=== PATIENT | female | born 1960 | race Caucasian/White ===

== ENCOUNTER 2016-04-03 11:13 | Emergency (ER) | payer BC ==
[2016-04-03 11:49] LABS: COLOR YELLOW; LEUKOCYTE ESTERASE,URINE NEGATIVE (NEGATIVE); NITRITE,URINE NEGATIVE (NEGATIVE)
--- NOTE | 2016-04-03 14:37 | EDPHY ---
H & P Time Seen by Provider: 04/03/16 14:25 HPI/ROS: CHIEF COMPLAINT: Right flank pain. HISTORY OF PRESENT ILLNESS: The patient is a 55-year-old female who presents with intermittent right flank pain for 6 days. The pain is intermittent in nature. It is described as 9/10 sharp, stabbing pain. It initially stayed in the right flank but now radiates her RUQ in the last 2 days. She reports having nausea and chills after the pain episodes. The pain wakes her up at night. She admits associated mild constipation, low-grade fever, and fatigue. She denies dysuria, urinary difficulty, hematuria, vomiting, diarrhea, recent sickness. She has a family history of gallbladder issues. REVIEW OF SYSTEMS: A complete 10-point review of systems was performed and is negative except for those items mentioned in the HPI. Past Medical/Surgical History: Hysterectomy. Social History: Nonsmoker. Smoking Status: Never smoked Physical Exam: General Appearance: Alert, no distress Eyes: Pupils equal and round, no conjunctival pallor or injection ENT, Mouth: Mucous membranes moist Neck: Normal inspection Respiratory: Lungs are clear to auscultation Cardiovascular: Regular rate and rhythm Gastrointestinal: RUQ tenderness. Abdomen is soft Neurological: A&O, nonfocal, normal gait Skin: Warm and dry, no rash Extremities: Nontender, no pedal edema Psychiatric: Mood and affect normal Constitutional: Initial Vital Signs Temperature (C) 36.4 C 04/03/16 11:24 Heart Rate 67 04/03/16 11:24 Respiratory Rate 20 04/03/16 11:24 Blood Pressure 116/70 04/03/16 11:24 O2 Sat (%) 95 04/03/16 11:24 O2 Delivery Mode Room Air Allergies/Adverse Reactions: No Known Allergies Allergy (Unverified 04/03/16 11:22) Home Medications: Medication Instructions Recorded 5-Cry 04/03/16 Dhea 04/03/16 Estrogen,Con/M-Progest Acet 04/03/16 Progesterone 04/03/16 Tetosterone 04/03/16 Medical Decision Making - Diagnostics Imaging: Study: Ultrasound of the: RUQ Indication: Pain. Results: No acute process. The study was read by the radiologist. I viewed the images myself on the PACS system. Study: CT of the abdomen/pelvis w/o IV contrast. Indication: Flank pain/RUQ pain. Results: 1. No nephro or ureterolithiasis.. 2. Normal appendix. 3. Prominent stool in the right side of the colon raises the possibility of constipation. 4. Cystic sacral lesion, not completely typical for arachnoid or Tarlov cyst. This could possibly represent a teratoma. Recommend MRI without and with contrast for further evaluation. The study was read by the radiologist, Dr. Beaulieu. I viewed the images myself on the PACS system. ED Course/Re-evaluation: Given RUQ/flank pain, I suspect gallstones vs renal colic. Abd sono ultrasound ordered. An IV was established and labs ordered. 1L IV saline administered for hydration along with 4mg IV Morphine for pain and 4mg IV Zofran for nausea. 1615: Abdominal ultrasound is negative. I discussed this with the patient at this time and reassessed her. An abdominal CT was ordered to further evaluate. I also ordered a D-dimer to screen her for a pulmonary embolism, given right flank pain with a normal ultrasound. 1643: Discussed CT results with Dr. Beaulieu, radiology. I discussed the results with the patient at this time and answered all of her questions. She wishes to proceed with MRI of the sacrum to further evaluate the cystic area. I do not think that the sacral lesion is causing her symptoms today. D-dimer is elevated at 1.6; CT pulmonary angiogram ordered to rule out pulmonary embolism. Study results discussed with the patient. She will follow up with Neurosurgery regarding the neural cyst. Abdominal pain precautions given. Abdominal exam remains benign. Differential Diagnosis: Differential diagnosis includes though it is not limited to appendicitis, cholecystitis, diverticulitis, pyelonephritis, bowel perforation, small bowel obstruction. - Data Points Laboratory Results: Laboratory Results 04/03/16 15:00 04/03/16 15:00 Medications Given: Discontinued Medications Acetaminophen/Hydrocodone Bitart ([place] 5/325mg Prepack#6) 1 btl TAKEHOME EDNOW ONE Stop: 04/03/16 20:15 Last Admin: 04/03/16 20:17 Dose: 1 btl Sodium Chloride (Ns) 1,000 mls @ 0 mls/hr IV ONCE ONE PRN Reason: Wide Open Stop: 04/03/16 14:43 Last Admin: 04/03/16 15:13 Dose: 1,000 mls Ketorolac Tromethamine (Toradol) 30 mg IVP EDNOW ONE Stop: 04/03/16 16:06 Last Admin: 04/03/16 16:30 Dose: 30 mg Morphine Sulfate (Morphine) 4 mg IVP EDNOW ONE Stop: 04/03/16 14:43 Last Admin: 04/03/16 15:12 Dose: 4 mg Ondansetron HCl (Zofran) 4 mg IVP EDNOW ONE Stop: 04/03/16 14:43 Last Admin: 04/03/16 15:13 Dose: 4 mg Departure - Departure Disposition: Home, Routine, Self-Care Clinical Impression: Right flank pain, Tarlov cyst Condition: Good Instructions: Flank Pain (ED), Hydrocodone/Acetaminophen (By mouth) Additional Instructions: There was a Tarlov cyst seen on your MRI today. This is a benign cyst. You should call a neurosurgeon tomorrow to set up a follow up appointment due to the size of the cyst. You have been given the telephone number of Dr. Enamorado, neurosurgery. Return to the emergency department if you experience worsening flank pain, fever , urinary symptoms, or other serious worsening of condition. Referrals: Jd Enamorado MD [Medical Doctor] - As per Instructions MYCHAL KING [Primary Care Provider] - As per Instructions Report Scribed for: Iris Fall Report Scribed by: Santi Polo Date of Report: 04/03/16 Time of Report: 14:37 Physician Review and Approval Statement: 04/03/16 14:37 Portions of this note were transcribed by a medical registrar. I personally performed a history, physical exam, medical decision making, and confirmed accuracy of information the transcribed note.
[2016-04-03] MEDS ORDERED: NS 1,000 ML IV ONE (14:42)
[2016-04-03] MEDS ORDERED: ONDANSETRON 4 MG/2 ML VIAL IVP ONE (14:42)
[2016-04-03 15:06] LABS: % IMMATURE GRANULYOCYTES 0.2 % (0.0-1.1); ABSOLUTE IMMATURE GRANULOCYTES 0.01 10^3/uL (0.00-0.10); ADD DIFF? NO; ADD MORPH? NO; ADD SCAN? NO; ATYPICAL LYMPHOCYTE FLAG 0 (0-99); FRAGMENT RBC FLAG 0 (0-99); HEMATOCRIT 41.9 % (38.0-47.0); HEMOGLOBIN 14.3 g/dL (12.6-16.3); LEFT SHIFT FLG 0 (0-99); LIPEMIA HEMOLYSIS FLAG 90 (0-99); MEAN CELL HEMOGLOBIN 29.4 pg (27.9-34.1); MEAN CELL HEMOGLOBIN CONCENTR. 34.1 g/dL (32.4-36.7); MEAN CELL VOLUME 86.2 fL (81.5-99.8); MEAN PLATELET VOLUME 9.9 fL (8.7-11.7); PLATELET CLUMPS FLAG 0 (0-99); PLATELET COUNT 244 10^3/uL (150-400); RED BLOOD CELL COUNT 4.86 10^6/uL (4.18-5.33); RED CELL DISTRIBUTION WIDTH 12.4 % (11.5-15.2)
[2016-04-03 15:24] LABS: ALANINE AMINOTRANSFERASE 35 IU/L (9-52); ALBUMIN 3.6 g/dL (3.5-5.0); ALKALINE PHOSPHATASE 68 IU/L (38-126); ANION GAP 11 mEq/L (8-16); ASPARTATE AMINOTRANSFERASE 22 IU/L (14-46); BILIRUBIN,TOTAL 0.5 mg/dL (0.1-1.4); BILIRUBIN-CONJUGATED 0.2 mg/dL (0.0-0.5); BILIRUBIN-UNCONJUGATED 0.3 mg/dL (0.0-1.1); CALCIUM 9.2 mg/dL (8.5-10.4); CARBON DIOXIDE 24 mEq/l (22-31); CHLORIDE 107 mEq/L (97-110); CREATININE 0.6 mg/dL (0.6-1.0); GLOMERULAR FILTRATION RATE > 60; GLUCOSE 89 mg/dL (70-100); SODIUM 142 mEq/L (134-144); TOTAL PROTEIN 6.7 g/dL (6.3-8.2)
[2016-04-03] MEDS ORDERED: KETOROLAC 30 MG/1 ML SDV IVP ONE (16:05)
--- NOTE | 2016-04-03 16:08 | US ---
Complete Abdominal Ultrasound History: Right upper quadrant pain. Comparison: None available. Findings: The liver is suboptimally visualized due to body habitus. The liver has normal echotexture and contour. There is no intrahepatic biliary dilatation. The common bile duct measures 4 mm and is n ormal. The gallbladder is normal. The spleen is normal, measuring 10.8 cm. The kidneys have normal ec hotexture and contour without hydronephrosis or contour deforming masses. Prominent extrarenal pelvis is noted in the left kidney. The right kidney measures 12.2 cm and the left kidney measures 11.6 cm. The visible aorta is normal caliber with partial obscuration of the aorta by overlying bowel gas. Th e visible portions of the pancreas are normal with partial obscuration of the pancreatic head and ava l by overlying bowel gas. The visible portions of the IVC are normal. The bladder is normal. Bilateral ureteral jets are present. There is no significant postvoid residual . Prevoid bladder volume is 247 mL. Impression: No acute findings in the abdomen. Findings discussed with Iris Fall today at 1603 hours.
[2016-04-03 16:31] VITALS: TEMP 97.7
--- NOTE | 2016-04-03 16:46 | CT ---
CT Abdomen and Pelvis Without Contrast (Stone Protocol) History: Right flank pain, possible kidney stone. History of hysterectomy without oophorectomy. No hi story of malignancy. Technique: Ultrathin ultrafast [address] through the abdomen and pelvis without contrast. D ose reduction techniques were utilized. Findings: There is no hydronephrosis or nephrolithiasis. There is no nephro or ureterolithiasis. Ther e are small calcifications in the right periureteral soft tissues that likely represent small phlebol iths. There are no stones in the urinary bladder. The lung bases are normally aerated. There is no pleural or pericardial effusion. Heart size is norm al. There is no hiatal hernia. The liver, pancreas, spleen and adrenal glands are normal. The abdomin al aorta is normal in size. There is no retroperitoneal or mesenteric adenopathy. There is no free fl uid. The vaginal cuff looks normal. No obvious adnexal pathology is identified. There is minimal sigm oid diverticulosis without diverticulitis. There is a normal vermiform appendix. There is prominent f ecal material in the proximal colon. There is an focal expansile cystic process involving the sacral neural canal at S3 that may be relate d to arachnoid or Tarlov cyst formation, although there is a suggestion of some atypical active ringl donovan right sacral neural canal bone destruction or formation (image 126 series 2). The dorsal left bon y canal is completely eroded. There is low lumbar degenerative disk disease between L3 and S1. Impression: 1. No nephro or ureterolithiasis.. 2. Normal appendix. 3. Prominent stool in the right side of the colon raises the possibility of constipation. 4. Cystic sacral lesion, not completely typical for arachnoid or Tarlov cyst. This could possibly rep resent a teratoma. Recommend MRI without and with contrast for further evaluation. Results discussed with Dr. Iris Fall. Attention: This CT examination is specifically designed to evaluate patients who are clinically suspe cted of having acute obstructive uropathy. This examination does not use radiographic contrast, and as such, provides only a limited evaluation of the abdomen, pelvis and retroperitoneum. If there is further clinical suspicion for pathological conditions other than obstructive uropathy, a complete C T evaluation of the abdomen and pelvis utilizing intravenous, oral, and rectal contrast should be con sidered. General information for patients regarding this examination can be found at [email or web address]. If you have questions or comments about this report, please contact me at [phone] (hospital) or [phone] (cell).
[2016-04-03] MEDS ORDERED: IOPAMIDOL (ISOVUE 370) 100 ML BTL IV ONE (18:08)
[2016-04-03] MEDS ORDERED: GADOBUTROL 10 ML VIAL IVP ONE (18:39)
[2016-04-03] MEDS ORDERED: HYDROCOD/APAP 5/325 PREPACK#6 BTL TAKEHOME ONE (20:14)
--- NOTE | 2016-04-03 20:19 | MR ---
MRI Pelvis, Without and With Contrast HISTORY: History of flank pain, which had a CT showing a sacral lesion. Further evaluation warrante d. TECHNIQUE: MRI was performed of the pelvis using a 3.0 Jessica MRI system. Sagittal, coronal, and axi al imaging was obtained with standard imaging sequences. COMPARISON: CT performed earlier today. FINDINGS: Multiple perineural cysts are seen in the sacrum, Tarlov cysts. The largest is at the lev el of S3 on the left, with a simple appearance, measuring 2.3 cm in width and extending craniocaudal 3.1 cm. There is enlargement of the sacral foramina and adjacent chronic remodeling of the bone. No evidence of adjacent bone marrow edema. At the same level on the right, there is a mildly complex T arlov cyst, which has slight increased signal intensity being isointense to muscle on T1-weighted luba ging and minimal enhancement at the margin. There is no evidence of enhancement to suggest a nerve o r nerve sheath tumor. This lesion measures 1.9 cm anterior to posterior x 1.8 cm craniocaudal. Othe r smaller perineural cysts have a simple appearance. No evidence for sacroiliitis. No evidence for a stress fracture or insufficiency fracture of the sacrum. No evidence for a soft tissue mass. IMPRESSION: Large Tarlov cysts at the level of S3, one on the right which is mildly complex. Results discussed with Dr. Iris Fall. E:ange
[2016-04-03 20:26] VITALS: BP 116/72; PULSE 78; RESP 18; O2SAT 96
--- NOTE | 2016-04-03 20:33 | CT ---
CT Pulmonary Angiogram at 1923 hours Clinical Indications: Chest pain. Elevated D-dimer. Technique:: Thinly collimated multidetector helical CT imaging was performed through the chest while 80 were injected intravenously, without complication. The images were then transferred to an [employer] workstation where multiplanar and three-dimensional reconstructions were performed by the inter preting physician and reviewed at multiple windows. Dose reduction techniques were utilized. Findings Pulmonary Angiogram: The pulmonary arteries are well opacified and demonstrate no evidence of a fill ing defect to indicate pulmonary embolus. No evidence for aortic aneurysm or dissection. CHEST: The heart size is within normal limits. No evidence for a pericardial effusion. No signific ant mediastinal or hilar lymphadenopathy. The lungs are clear. No evidence for a pleural effusion o r pneumothorax. Mild degenerative change is seen in the thoracic spine. IMPRESSION: No evidence for pulmonary embolus. Results discussed with Dr. Iris Fall.
== END 2016-04-03 20:26 | disposition home or self-care (01) ==
DX: R10.11 Right upper quadrant pain (principal); G54.8 Other nerve root and plexus disorders
CPT/HCPCS: 96374; A9585; J1885; J2405; Q9967